=== PATIENT | female | born 1965 | race African-American/Black ===

== ENCOUNTER 2019-05-20 13:41 | Emergency (ER) | payer SELFPAY ==
[~2019-05-20] VITALS: Ht 175.3 cm; Wt 99.8 kg
[~2019-05-20 13:41] MED LIST: ALPRAZOLAM1 MG ORAL; COLACE100 MG ORAL; FERROUS SULFAT325 MG ORAL; NKM
--- NOTE | 2019-05-20 14:00 | NUR ---
ED Nurse Note: pt walked in to ER from home c/o palpitation for last 4 days. pt aao x4 and ambulatory. skin clean and intact. calm and cooperative. pt is in gown and on cardiac catheterization technologist.
[2019-05-20 14:01] VITALS: BP 141/81
[2019-05-20] MEDS ORDERED: Potassium PO (14:12)
[2019-05-20] MEDS ORDERED: Magnesium PO (14:12)
[2019-05-20 14:29] LABS: BASOPHILS % (AUTO) 1.3 % (0.0-2.0); EOSINOPHILS % (AUTO) 1.5 % (0.0-3.0); HEMATOCRIT 36.5 % (37.0-47.0); HEMOGLOBIN 11.6 G/DL (12.0-16.0); LYMPHOCYTES % (AUTO) 39.2 % (20.0-45.0); MEAN CORPUSCULAR VOLUME 90 FL (80-99); MONOCYTES % (AUTO) 7.1 % (1.0-10.0); NEUTROPHILS % (AUTO) 50.8 % (45.0-75.0); PLATELET COUNT 261 K/UL (150-450); RED BLOOD COUNT 4.06 M/UL (4.20-5.40); WHITE BLOOD COUNT 5.8 K/UL (4.8-10.8)
--- NOTE | 2019-05-20 14:33 | NUR ---
ED Nurse Note: x-ray at bedside.
--- NOTE | 2019-05-20 14:41 | NUR ---
ED Nurse Note: pt ambulated to bathroom for urine sample with steady gait.
[2019-05-20 14:43] LABS: ANION GAP 8 mmol/L (5-15); BLOOD UREA NITROGEN 15 mg/dL (7-18); CALCIUM 9.6 MG/DL (8.5-10.1); CARBON DIOXIDE 29 MMOL/L (21-32); CHLORIDE 107 MMOL/L (98-107); CREATININE 0.8 MG/DL (0.55-1.30); POTASSIUM 4.2 MMOL/L (3.5-5.1); SODIUM 144 MMOL/L (136-145)
[2019-05-20 14:56] LABS: INR 0.9 (0.9-1.1)
[2019-05-20 14:57] LABS: ALANINE AMINOTRANSFERASE 18 U/L (12-78); ALBUMIN 3.5 G/DL (3.4-5.0); ALBUMIN/GLOBULIN RATIO 0.8 (1.0-2.7); ALKALINE PHOSPHATASE 115 U/L (46-116); ASPARTATE AMINO TRANSFERASE 15 U/L (15-37); BILIRUBIN,TOTAL 0.5 MG/DL (0.2-1.0); CKMB 0.5 NG/ML (0.0-3.6); CREATINE KINASE 80 U/L (26-308)
--- NOTE | 2019-05-20 15:01 | Diagnostic Imaging Report ---
Indication: Dyspnea Comparison: 12/08/2013 A single view chest radiograph was obtained. Findings: The heart is enlarged. The hilum appears slightly obscured which shadow may be due to the kyphotic projection angle and presence of costal cartilage at the end of the first rib which projects over the hilum. Similar findings seen previously. Bones are unremarkable. Lungs are essentially clear. IMPRESSION: No acute disease
--- NOTE | 2019-05-20 15:35 | Emergency Room Report ---
History of Present Illness General Chief Complaint: Palpitations Source: Patient Present Illness HPI 54-year-old female with history of intermittent palpitations currently under the care of case coordinator here complaining of worsening palpitations x2 days. Patient denies chest pain radiation of pain to the jaw or her left arm. Patient reports that her palpitations started exacerbating when she was resting denies any recent exertion. She did workout and lift heavy objects a week ago however complaining of left arm pain then without any radiation denying tingling and numbness. Patient is currently on daily dose of potassium and magnesium per her rate case coordinator recommendation denying chest pain, shortness of breath, headache, blurred vision. Patient complains of new onset of dizziness around the same time that her palpitation worsen. Denies history of hypertension, diabetes, tobacco smoke, drug use and alcohol. Denies abdominal pain, acid reflux nausea vomiting, diarrhea and constipation. Patient reports that she was recently at her primary care physician and had complete blood work thyroid hormone and all other levels were within normal limits. Denies recent weight changes, diaphoresis, and all other associated symptoms patient has not taken any medication for alleviation of symptoms patient appears stable, alert, responsive. Denies vertigo, sensory or motor deficit, loss of balance, gait abnormality. Denies SI and HI and anxiety Allergies: Coded Allergies: PENICILLINS (Verified Allergy, Unknown, 12/08/13) Patient History Past Medical History: see triage record Past Surgical History: unable to obtain Pertinent Family History: none Last Menstrual Period: na Now: No Immunizations: UTD Reviewed Nursing Documentation: PMH: Agreed; PSxH: Agreed Nursing Documentation-PMH Past Medical History: No History, Except For Hx Cardiac Problems: Yes - VALVE LEAKING DISORDER Review of Systems All Other Systems: negative except mentioned in HPI Physical Exam Vital Signs Date Time Temp Pulse Resp B/P (MAP) Pulse Ox O2 Delivery O2 Flow Rate FiO2 05/20/19 13:51 98.1 93 20 141/81 (101) 95 Room Air Sp02 EP Interpretation: reviewed, normal General Appearance: normal inspection, well appearing, no apparent distress, alert, GCS 15 Head: normocephalic, atraumatic Eyes: bilateral eye normal inspection, bilateral eye PERRL ENT: normal ENT inspection, hearing grossly normal, normal pharynx, no angioedema, TMs + canals normal Neck: normal inspection, full range of motion, supple, thyroid normal, no meningismus Respiratory: normal inspection, chest non-tender, lungs clear, normal breath sounds, no rhonchi, no respiratory distress, no retraction, no accessory muscle use, no wheezing Cardiovascular #1: normal peripheral pulses, no edema, no gallop, no JVD, no murmur, normal capillary refill Cardiovascular #2: 2+ carotid (R), 2+ carotid (L) Gastrointestinal: normal inspection, non tender, soft, no mass, no peritonitis , no bruit Genitourinary: no CVA tenderness Musculoskeletal: normal inspection, back normal Neurologic: normal inspection, alert, oriented x3, responsive Psychiatric: normal inspection, judgement/insight normal, memory normal Skin: no rash, palpation normal, normal turgor Lymphatic: normal inspection, no adenopathy Medical Decision Making PA Attestation Diagnosis and treatment plans were reviewed and discussed with my supervising physician Dr. Bedolla Diagnostic Impression: Primary Impression: Palpitations ER Course 54-year-old female with history of intermittent palpitations currently under the care of case coordinator here complaining of worsening palpitations x2 days. Patient denies chest pain radiation of pain to the jaw or her left arm. Patient reports that her palpitations started exacerbating when she was resting denies any recent exertion. She did workout and lift heavy objects a week ago however complaining of left arm pain then without any radiation denying tingling and numbness. Patient is currently on daily dose of potassium and magnesium per her rate case coordinator recommendation denying chest pain, shortness of breath, headache, blurred vision. Patient complains of new onset of dizziness around the same time that her palpitation worsen. Denies history of hypertension, diabetes, tobacco smoke, drug use and alcohol. Denies abdominal pain, acid reflux nausea vomiting, diarrhea and constipation. Patient reports that she was recently at her primary care physician and had complete blood work thyroid hormone and all other levels were within normal limits. Denies recent weight changes, diaphoresis, and all other associated symptoms patient has not taken any medication for alleviation of symptoms patient appears stable, alert, responsive. Denies vertigo, sensory or motor deficit, loss of balance, gait abnormality. Denies SI and HI and anxiety. Ddx considered but are not limited to: MT, Angina, COPD, GERD, palpitation, hypokalemia Vital signs: are WNL, pt. is afebrile H&PE are most consistent with palpitations unspecified ORDERS: EKG, Chest XR, cardiac labs(troponin, CBC, CMP, lipid, ED INTERVENTIONS: None required at this time. DISCHARGE: At this time pt. is stable for d/c to home. Will provide printed patient care instructions, and any necessary prescriptions. Care plan and follow up instructions have been discussed with the patient prior to discharge. EKG Diagnostic Results Rate: normal Rhythm: NSR ST Segments: no acute changes Other Impression No changes suggesting hypokalemia or hypomagnesemia Chest X-Ray Diagnostic Results Chest X-Ray Diagnostic Results : Chest X-Ray Ordered: Yes # of Views/Limited/Complete: 1 View Indication: Other EP Interpretation: Yes ERIK Xray: Interpretation reviewed, by supervising MD, and agrees with findings. Interpretation: no consolidation, no effusion, no pneumothorax, no acute cardiopulmonary disease Impression: No acute disease Electronically Signed by: Alexys Burgos PA-C Last Vital Signs Date Time Temp Pulse Resp B/P (MAP) Pulse Ox O2 Delivery O2 Flow Rate FiO2 05/20/19 14:01 98.1 85 20 141/81 95 Room Air Disposition: HOME, SELF-CARE Condition: Stable Referrals: NON PHYSICIAN (PCP) Patient Instructions: Palpitations Additional Instructions: Follow-up with your primary care provider and your case coordinator for further assessment echocardiogram if needed at this time no acute changes noted based on your blood work, chest x-ray, and electrocardiogram you are stable with stable vital signs. Avoid strenuous physical activity increase oral hydration. Alexys Teran May 20, 2019 15:35
[2019-05-20 16:05] VITALS: BP 138/80
--- NOTE | 2019-05-20 16:05 | NUR ---
ER DISCHARGE NOTE: Patient is cleared to be discharged per ERPA, pt is aox4, on room air, with stable vital signs. pt was given dc instructions, pt was able to verbalize understanding and reported that she will make an appointment with her continuity clerk, pt id band and iv site removed without complications. pt is able to ambulate with steady gait. pt took all belongings.
== END 2019-05-20 16:05 | disposition home or self-care (01) ==
LOC: EMR 14:30
DX: R00.2 Palpitations (principal); Z88.0 Allergy status to penicillin; M79.602 Pain in left arm
CPT/HCPCS: 36415; 71045; 80053; 80307; 82550; 82553; 83735; 84443; 84484; 85025; 85610; 85730; 86850; 86900; 86901; 93005; 99284

== ENCOUNTER 2020-01-10 21:21 | Emergency (ER) | payer BC ==
[~2020-01-10] VITALS: Ht 175.3 cm; Wt 96.6 kg
[~2020-01-10 21:21] MED LIST changes: +Magnesium PO; +Potassium PO
[2020-01-10 22:00] VITALS: BP 118/76
--- NOTE | 2020-01-10 22:00 | NUR ---
ED Nurse Note: Pt walked into ED for c/o back and R leg pain s/p fall yesterday. Pt states she tripped and fell causing her to land on her hands and knees. Pt started in her R leg but has since radiated into her back. Pt has hx of sciatica. Pt also reports R foot swelling. Pt is aaox4, no acute distress noted. No LOC or head trauma.
[2020-01-10] MEDS ORDERED: IBUPROFEN600 MG ORAL (22:24)
[2020-01-10] MEDS ORDERED: HYDROCODON-ACE1 EA15 ORAL (22:24)
[2020-01-10] MEDS ORDERED: PREDNISONE20 MG ORAL (22:24)
--- NOTE | 2020-01-10 22:24 | Emergency Room Report ---
History of Present Illness General Chief Complaint: Multiple Trauma/Fall Source: Patient Present Illness [facility] This a 54-year-old female with a history of back problem. She says she has herniated disc at L5 area. She says she tripped on the curb and landed on her hands and knee yesterday. Since then to trigger her back pain and now the pain is shooting down her. Pain is sharp and throbbing in nature. No fever chills. No nausea no vomiting. Pain is 10 out of 10. No incontinence of bowel or urine. No weakness. Worse with movement. Worse with walking and sitting for prolonged period of time. Advil is not helping. Allergies: Coded Allergies: PENICILLINS (Verified Allergy, Unknown, 12/08/13) Patient History Past Medical History: see triage record, old chart reviewed Past Surgical History: none Pertinent Family History: none Social History: Denies: smoking Now: No Immunizations: other Reviewed Nursing Documentation: PMH: Agreed; PSxH: Agreed Nursing Documentation-PMH Past Medical History: No History, Except For Hx Cardiac Problems: Yes - VALVE LEAKING DISORDER Review of Systems Eye: Denies: eye pain, blurred vision ENT: Denies: ear pain, nose congestion, throat swelling Respiratory: Denies: cough, shortness of breath Cardiovascular: Denies: chest pain, palpitations Gastrointestinal: Denies: abdominal pain, diarrhea, nausea, vomiting Musculoskeletal: Reports: back pain; Denies: joint pain Skin: Denies: rash Neurological: Denies: headache, numbness Endocrine: Denies: increased thirst, increased urine Hematologic/Lymphatic: Denies: easy bruising All Other Systems: negative except mentioned in HPI Physical Exam Vital Signs Date Time Temp Pulse Resp B/P (MAP) Pulse Ox O2 Delivery O2 Flow Rate FiO2 01/10/20 21:38 98.1 61 22 118/76 (90) 100 Room Air Vitals normal Sp02 EP Interpretation: reviewed, normal General Appearance: well appearing, no apparent distress, alert Head: normocephalic, atraumatic Eyes: bilateral eye PERRL, bilateral eye EOMI ENT: hearing grossly normal, normal pharynx Neck: full range of motion, supple, no meningismus Respiratory: chest non-tender, lungs clear, normal breath sounds Cardiovascular #1: regular rate, rhythm, no murmur Gastrointestinal: normal bowel sounds, non tender, no mass, no organomegaly, no bruit, non-distended Musculoskeletal: back normal - Tenderness to the lower lumbar area. No anesthesia or step-off., normal range of motion, gait/station normal Psychiatric: mood/affect normal Medical Decision Making Diagnostic Impression: Primary Impression: Back pain Qualified Codes: M54.41 - Lumbago with sciatica, right side ER Course Patient with tenderness to her lower lumbar area with sciatica. No evidence of cauda equina syndrome, spinal rib abscess or neoplastic process. No direct trauma to warrant x-ray, CT scan or MRI. Will discharge home. Last Vital Signs Date Time Temp Pulse Resp B/P (MAP) Pulse Ox O2 Delivery O2 Flow Rate FiO2 01/10/20 21:38 98.1 61 22 118/76 (90) 100 Room Air Status: improved Disposition: HOME, SELF-CARE Condition: Stable Scripts Prednisone* (PREDNISONE*) 20 Mg Tablet 40 MG ORAL DAILY, #14 TAB Prov: Cameron Orr MD 01/10/20 Ibuprofen* (MOTRIN*) 600 Mg Tablet 600 MG ORAL THREE TIMES A DAY, #30 TAB 0 Refills Prov: Cameron Orr MD 01/10/20 Hydrocodone/Acetaminophen 5-325* (HYDROCODONE/ACETAMINOPHEN 5-325*) 1 Each Tablet 1 TAB ORAL Q6H PRN for For Pain, #15 TAB 0 Refills Prov: Cameron Orr MD 01/10/20 Additional Instructions: No heavy lifting. Follow-up with your doctor in 7 days. Return if symptoms worsen. Cameron Orr MD Jan 10, 2020 22:24
[2020-01-10] MEDS ORDERED: HYDROcodone/Acetamin 5/325 tab ORAL ONE (22:30)
[2020-01-10] MEDS ORDERED: HYDROmorphone 1mg/ml Carpuject IM ONE (22:30)
[2020-01-10 22:50] VITALS: BP 118/81
--- NOTE | 2020-01-10 22:50 | NUR ---
ER DISCHARGE NOTE: Patient is cleared to be discharged per ERMD, pt is aox4, on room air, with stable vital signs. pt was given dc and prescription instructions, pt was able to verbalize understanding, pt id band removed. pt is able to ambulate with steady gait. pt took all belongings.
== END 2020-01-10 22:50 | disposition home or self-care (01) ==
LOC: EMR 21:57
DX: M54.41 Lumbago with sciatica, right side (principal); Z88.0 Allergy status to penicillin
CPT/HCPCS: 99282